=== PATIENT | female | born 1990 | race Two or more races ===

== ENCOUNTER 2022-12-27 03:34 | Inpatient (IN) | payer SELFPAY ==
[2022-12-27] MEDS ORDERED: Lidocaine 1% 50 ML MDV ONE (04:12)
[2022-12-27] MEDS ORDERED: Oxytocin/0.9 % Sodium Chloride 30 UNIT/500 ML BAG ONE (04:12)
[2022-12-27] MEDS ORDERED: Ibuprofen 800 MG Tab PO PRN (04:25)
[2022-12-27] MEDS ORDERED: Ibuprofen 400 MG Tab PO PRN (04:25)
[2022-12-27] MEDS ORDERED: Lanolin 100% Cream 7 GM Tube TOP PRN (04:25)
[2022-12-27] MEDS ORDERED: Benzocaine/Menthol 20%-0.5% Spray 78 GM Cannister TOP PRN (04:25)
[2022-12-27] MEDS ORDERED: Acetaminophen 500 MG Tab PO PRN (04:25)
[2022-12-27] MEDS ORDERED: Bisacodyl 10 MG Supp RECTAL PRN (04:25)
[2022-12-27] MEDS ORDERED: Witch Hazel Medicated Pads 40/Jar TOP PRN (04:25)
[2022-12-27] MEDS ORDERED: Lidocaine 1% 50 ML MDV INJECT PRN (06:35)
[2022-12-27] MEDS ORDERED: Sodium Chloride 0.9% 10 ML Syringe FLUSH PRN (06:35)
[2022-12-27] MEDS ORDERED: Tranexamic Acid 1,000 MG in Sodium Chloride 0.9% 100 ML IV PRN (06:35)
[2022-12-27] MEDS ORDERED: Carboprost Tromethamine 250 MCG/1 ML Amp IM PRN (06:35)
[2022-12-27] MEDS ORDERED: Sodium Chloride 0.9% 20 ML SDV IV PRN (06:35)
[2022-12-27] MEDS ORDERED: Methylergonovine 0.2 MG/1 ML Amp IM PRN (06:35)
[2022-12-27] MEDS ORDERED: Sodium Chloride 0.9% 2.5 ML Syringe FLUSH PRN (06:35)
[2022-12-27] MEDS ORDERED: Misoprostol 200 MCG Tab PO PRN (06:35)
[2022-12-27] MEDS ORDERED: Water For Irrigation,Sterile 1,000 ML Container IRR PRN (06:35)
[2022-12-27] MEDS ORDERED: Oxytocin/0.9 % Sodium Chloride 30 UNIT/500 ML BAG IV SCH (06:45)
[2022-12-27] MEDS ORDERED: Lactated Ringers 1,000 ML IV SCH (06:45)
[2022-12-27] MEDS: Acetaminophen 500 MG Tab PO PRN ×3 (07:30→23:26)
[2022-12-27] MEDS: oxyCODONE 5 MG Tab PO PRN ×2 (11:52→16:26)
[2022-12-27 12:58] LABS: C. TRACHOMATIS BY PCR NOT DETECTED; N. GONORRHOEAE BY PCR NOT DETECTED
[2022-12-27] MEDS: Docusate Sodium 100 MG Cap PO PRN (23:27)
[2022-12-28] MEDS: Docusate Sodium 100 MG Cap PO PRN (18:07)
== END 2022-12-29 18:03 | disposition home or self-care (01) | DRG 807 ==
LOC: MW.OBCHECK 03:34 → MW.OB 03:35 → MW.OBCHECK 03:59 → MW.OB 03:59 → OBSVTOIN 04:00 → MW.OB 13:08
PROVIDERS: ADMIT Obstetrics & Gynecology; ATTEND Obstetrics & Gynecology
PROC: 10E0XZZ Delivery of Products of Conception, External Approach (ICD-10-PCS; principal; 2022-12-27)
PROC: 3E033VJ Introduction of Other Hormone into Peripheral Vein, Percutaneous Approach (ICD-10-PCS; 2022-12-27)
DX: O70.1 Second degree perineal laceration during delivery (principal); Z37.0 Single live birth; Z20.822 Contact with and (suspected) exposure to COVID-19; Z3A.38 38 weeks gestation of pregnancy
CPT/HCPCS: 36415; 59025; 59409; 80305-QW; 81001; 85014; 85018; 85027; 86592; 86762; 86803; 86850; 86900; 86901; 87086; 87340; 87389; 87491; 87591; 87653; A9270-GY; J2001; J2590; U0002